=== PATIENT | female | born 1995 | race Caucasian/White ===

== ENCOUNTER 2020-03-11 03:12 | Emergency (ER) | payer OTHER ==
--- OUTSIDE RECORDS SUMMARY | 2020-03-11 03:33 | XMS ---
:1995 [facility] Providers Name Role Phone [id number] Unavailable Unavailable Re-disclosure Warning The records that you are about to access may contain information from federally- assisted alcohol or drug abuse programs. If such information is present, then the following federally mandated warning applies: This information has been disclosed to you from records protected by federal confidentiality rules (42 CFR part 2). The federal rules prohibit you from making any further disclosure of this information unless further disclosure is expressly permitted by the written consent of the person to whom it pertains or as otherwise permitted by 42 CFR part 2. A general authorization for the release of medical or other information is NOT sufficient for this purpose. The Federal rules restrict any use of the information to criminally investigate or prosecute any alcohol or drug abuse patient.The records that you are about to access may contain highly sensitive health information, the redisclosure of which is protected by Article 27-F of the [facility] Public Health law. If you continue you may haveaccess to information: Regarding HIV / AIDS; Provided by facilities licensed or operated by the [facility] Office of Mental Health; or Provided by the [facility] Office for People With Developmental Disabilities. If such information is present, then the following [facility] mandated warning applies: This information has been disclosed to you from confidential records which are protected by state law. State law prohibits you from making any further disclosure of this information without the specific written consent of the person to whom it pertains, or as otherwise permitted by law. Any unauthorized further disclosure in violation of state law may result in a fine or residential sentence or both. A general authorization for the release of medical or other information is NOT sufficient authorization for further disclosure. Encounters Encounter Providers Location Date Indications Data Source(s ) Outpatient Attender: PM[facility]9 07/17/2019 [facility] 12:17:41 PM Care [facility] n) EST Patient admitted. Insurance Providers Payer name Policy type Policy ID Covered Covered green party's Policy P allie / Coverage green party ID relationship to [employer] type wilson HIP MEDICAID [id number] SP [id number] HIP SHEILA [id number] PT [id number] 01 1 HIP MONTE [id number] PT [id number] MCAID 1 Results ID Date Data Source [id number] 12/17/2019 02:59:00 PM EDT [facility] Name Value Range Interpretation Code Description Data Yolis rce(s) Supporting Document(s ) COV2 [facility] This lab was ordered by MITZI FERRARI and reported by [facility] Michelle. Procedure
[2020-03-11 03:42] VITALS: TEMP 98.1; BMI 29.7
[2020-03-11] MEDS ORDERED: SODIUM CHLORIDE 0.9% 500 ML INFUS.BAG IV ONE (03:49)
[2020-03-11] MEDS ORDERED: ACETAMINOPHEN 1000 MG/100 ML VIAL (NON FORMULARY) IVPB ONE (03:49)
[2020-03-11] MEDS ORDERED: ONDANSETRON 4 MG/2 ML VIAL IVPUSH ONE (03:49)
--- NOTE | 2020-03-11 03:52 | PDOC ---
History of Present Illness - General Chief Complaint: Pain, Acute Stated Complaint: ABD PAIN Time Seen by Provider: 03/11/20 03:33 Past History - Medical History Allergies/Adverse Reactions: Allergies Allergy/AdvReac Type Severity Reaction Status Date / Time No Known Allergies Allergy Verified 03/11/20 03:41 - Reproductive History Is Patient Now?: No - Psycho-Social/Smoking History Smoking History: Never smoked Information on smoking cessation initiated: No - Substance Abuse Hx (Audit-C & DAST Scrn) How often the patient has a drink containing alcohol: Never Score: In Men: 4 or > Positive; In Women: 3 or > Positive: 0 Screen Result (Pos requires Nsg. Audit-10AR): Negative In the last yr the pt used illegal drug/Rx for NonMed reason: No Score: Yes response is considered Positive: 0 Screen Result (Positive result requires Nsg. DAST-10): Negative *Physical Exam - Vital Signs Last Vital Signs Temp Pulse Resp BP Pulse Ox 98.1 F 118 H 20 159/99 98 03/11/20 03:36 03/11/20 03:36 03/11/20 03:36 03/11/20 03:36 03/11/20 03:36 ED Treatment Course - LABORATORY CBC & Chemistry Diagram: 03/11/20 03:50 03/11/20 03:50 Medical Decision Making - Medical Decision Making 03/11/20 03:48 HPI: 25yo F hx PID (treated) presents from home c/o 4 days constant suprapubic/R pelvic dull nonradiating pain worse intermittently and worse after eating especially fatty foods, similar to prior PID but denies any chance of STI. Last tested 6mo ago and no unprotected sex since. Endorses nausea without vomiting. Endorses chills without fever. 2hrs ago 1 episode of white slightly clumpy vaginal discharge, denies irritation or rash or lesion or bleeding or other discharge. LMP ended Tuesday. 2 episodes of diarrhea Tuesday/Tuesday resolved. Endorses chronic slight BRBPR 2/2 hemorrhoids, no change recently. Took 1 pill of amoxicillin 3wks ago for sinus infection. Denies travel, sick contacts, abdominal surgeries, constipation, abdominal surgeries, urinary sx, flank pain. ROS: Constitutional: Positive for chills. Negative for ever, fatigue, diaphoresis. HENT: Negative for sore throat, rhinorrhea, congestion. Eyes: Negative for visual disturbance. Respiratory: Negative for shortness of breath, cough, and wheezing. Cardiovascular: Negative for chest pain, palpitations, and leg swelling. Gastrointestinal: Positive for abdominal pain, BRBPR, diarrhea, nausea. Negative for constipation, and vomiting. Genitourinary: Negative for dysuria, flank pain, and hematuria. Musculoskeletal: Negative for myalgias, back pain, and neck pain. Skin: Negative for rash. Neurological: Negative for light-headedness, dizziness, vertigo, syncope, weakness, numbness and headaches. Psychiatric/Behavioral: Negative for behavioral problems and confusion. PE: Gen: Alert, NAD, comfortable-appearing. HEENT: PERRL, EOMI, MMM, NCAT. No conjunctival pallor. Sclera are non-icteric. Oropharynx is clear. CV: Tachycardic rate and regular rhythm. No murmurs, rubs, or gallops. PULM: No resp distress. CTAB, no wheezes, rales, or rhonchi. ABD: soft, moderate RUQ TTP, slight suprapubic/R pelvic ttp, ND, no rebound tenderness or guarding, no CVA tenderness. PELVIC: External genitalia unremarkable. No blood seen with speculum exam; scant white non-odorous non-clumpy physiologic-appearing discharge. Cervix visualized and is unremarkable (closed in appearance without any protruding material). Bimanual exam with right adnexal TTP, without cervical motion tenderness, left adnexal tenderness, or any masses appreciated. BACK: No TTP of c/t/l-spine. No step-offs or deformities. MSK: No bony deformities. 2+ pulses in all extremities. NEURO: AAOx3. PERRL. No gross CN deficits. Strength and sensation grossly intact throughout. CN 2-12 intact. 5/5 strength in all extremities. Sensation to light touch intact in all extremities. No pronator drift. No dysmetria. No dysdiadochokinesia. No abnormal nystagmus. No skew deviation. Normal gait. EXTREMITIES: No cyanosis. No clubbing. No edema. No calf tenderness. PSYCH: Normal mood and thought pattern. SKIN: Warm and dry. Normal capillary refill. No rashes. No jaundice. MDM: 25yo F hx PID (treated) presents from home c/o 4 days suprapubic/R pelvic pain with associated nausea and chills. Tachycardic, otherwise hemodynamically stable, afebrile, pelvic exam notable for R CVA tenderness, abdomen exam notable for RUQ and R pelvic TTP. Ddx: cholelithiasis/cystitis, pancreatitis, GERD, appendicitis, colitis, gastroenteritis, pelvic pathology (cyst, cyst rupture, torsion, abscess), UTI, STD, PID -Labs -POCUS GB: contracted, ?polyp, no gallstones visualized, +Garcia's sign -RUQ US -Transvaginal US -CTAP w/IV contrast -IVF -Ofirmev -Zofran -Dispo: pending w/u 03/11/20 05:33 Labs reviewed. WBC 12.4, preg neg, ua neg for UTI 03/11/20 06:26 CTAP reviewed: Possible splenic cysts can be confirmed with ultrasound as clinically indicated. Small amount of pelvic free fluid is likely physiologic. No definite evidence of acute pathology. Pt sleeping comfortably. [] US transvaginal and RUQ Signed out to day team. Discharge - Discharge Information Problems reviewed: Yes Clinical Impression/Diagnosis: Abdominal pain Condition: Fair - Follow up/Referral Referrals: Sunny Galvez [Primary Care Provider] - - Patient Discharge Instructions - Post Discharge Activity
--- NOTE | 2020-03-11 03:55 | PDOC ---
Attending Attestation - Resident Resident Name: Sommer Cowart - ED Attending Attestation I have performed the following: I have examined & evaluated the patient, The case was reviewed & discussed with the resident, I agree w/resident's findings & plan, Exceptions are as noted - HPI HPI: 25 yo F history of PID (treated years ago) presents with 3-4 days of suprapubic and RLQ pain, progressively worsening. Worse with fatty foods. +Small amount of vaginal discharge, but nothing out of the ordinary. Denies dysuria, hematuria, back pain. Temp was 99.4 at home. - Physicial Exam PE: GENERAL: Awake, alert, and fully oriented, in no acute distress. Well-appearing. HEAD: No signs of trauma EYES: PERRLA, EOMI, sclera anicteric, conjunctiva clear ENT: Auricles normal inspection, hearing grossly normal, nares patent, oropharynx clear without exudates. Moist mucosa NECK: Normal ROM, supple, no lymphadenopathy, JVD, or masses LUNGS: Breath sounds equal, clear to auscultation bilaterally. No wheezes, and no crackles HEART: Regular rate and rhythm, normal S1 and S2, no murmurs, rubs or gallops ABDOMEN: Soft, +moderate RLQ tenderness with guarding, +mild RUQ tenderness, normoactive bowel sounds. +Guarding, no rebound. No masses EXTREMITIES: Normal range of motion, no edema. No clubbing or cyanosis. No cords, erythema, or tenderness NEUROLOGICAL: Cranial nerves II through XII grossly intact. Normal speech, normal gait. Motor and sensation intact SKIN: Warm, dry, normal turgor, no rashes or lesions noted. - Medical Decision Making 03/11/20 05:04 Based on GI symptoms, change in appetite, and RLQ tenderness, will check CT a/p to r/o appendicitis. If negative, will obtain pelvic US. Discharge - Discharge Information Problems reviewed: Yes Clinical Impression/Diagnosis: Abdominal pain Qualifiers: Abdominal location: lower abdomen, unspecified Qualified Code(s): R10.30 - Lower abdominal pain, unspecified Condition: Stable - Follow up/Referral Referrals: Sunny Galvez [Primary Care Provider] - - Patient Discharge Instructions Additional Instructions: You were seen in the emergency department for abdominal pain. You received nausea and pain medication. Your labs and imaging showed no signs of immediate concern. Please follow up with your primary care physician and or Loom Cleaner regarding your visit to the emergency department. If you experience profound nausea, vomiting, fever, chills, shortness of breath please return to the emergency department or call 911. - Post Discharge Activity
[2020-03-11] MEDS ORDERED: ACETAMINOPHEN INJECTION 100 ML IVPB ONE (04:06)
[2020-03-11 04:25] LABS: BASO % 0.6 % (0-2.0); EOS % 2.3 % (0-4.5); HEMATOCRIT 38.8 % (32.4-45.2); LYMPH % 29.2 % (8-40); MCH 28.8 pg (25.7-33.7); MCHC 33.6 g/dl (32.0-36.0); MEAN CELL VOLUME 85.9 fl (80-96); MEAN PLT VOLUME 8.6 fl (7.5-11.1); NEUT % 59.9 % (42.8-82.8); PLATELET COUNT 322 K/MM3 (134-434); RBC 4.51 M/mm3 (3.60-5.2); RDW 13.8 % (11.6-15.6); WHITE BLOOD COUNT 12.4 K/mm3 (4.0-10.0)
[2020-03-11 04:47] LABS: ALBUMIN 4.1 g/dl (3.4-5.0); BILIRUBIN,TOTAL 0.2 mg/dL (0.2-1); BLOOD UREA NITROGEN 13.8 mg/dL (7-18); CALCIUM 8.5 mg/dL (8.5-10.1); CREATININE 0.8 mg/dL (0.55-1.3); POTASSIUM 4.1 mmol/L (3.5-5.1); TOT PROT 7.2 g/dl (6.4-8.2)
[2020-03-11 04:52] LABS: PH,URINE 6.5 (5.0-8.0); URINE APPEARANCE CLEAR; URINE BILIRUBIN NEGATIVE (NEGATIVE); URINE COLOR YELLOW; URINE GLUCOSE (UA) NEGATIVE (NEGATIVE); URINE KETONE NEGATIVE (NEGATIVE); URINE LEUK ESTERASE NEGATIVE (NEGATIVE); URINE NITRITE NEGATIVE (NEGATIVE); URINE PROTEIN NEGATIVE (NEGATIVE); URINE UROBILINOGEN 0.2 mg/dL (0.2-1.0)
[2020-03-11 04:54] LABS: HCG,QUALITATIVE URINE Negative
[2020-03-11 04:57] VITALS: BP 112/74; PULSE 78
--- NOTE | 2020-03-11 07:29 | PDOC ---
*Physical Exam - Vital Signs Last Vital Signs Temp Pulse Resp BP Pulse Ox 98.1 F 78 18 112/74 100 03/11/20 03:36 03/11/20 04:56 03/11/20 04:56 03/11/20 04:56 03/11/20 04:56 - Physical Exam General Appearance: Yes: Nourished, Appropriately Dressed. No: Apparent Distress Respiratory/Chest: positive: Lungs Clear, Normal Breath Sounds. negative: Chest Tender, Respiratory Distress, Accessory Muscle Use, Crackles, Rales, Stridor, W heezing Cardiovascular: positive: Regular Rhythm, Regular Rate. negative: Edema, JVD, Murmur Gastrointestinal/Abdominal: positive: Normal Bowel Sounds, Tender (RLQ), Flat, Soft. negative: Distended, Guarding, Rebound, Tenderness Musculoskeletal: positive: Normal Inspection. negative: CVA Tenderness Extremity: positive: Normal Inspection. negative: Tender, Swelling, Calf Tenderness Integumentary: positive: Normal Color, Dry, Warm. negative: Rash, Swelling Neurologic: positive: Fully Oriented, Alert, Normal Mood/Affect, Normal Response ED Treatment Course - LABORATORY CBC & Chemistry Diagram: 03/11/20 03:50 03/11/20 03:50 - ADDITIONAL ORDERS Additional order review: Laboratory Results 03/11/20 03/11/20 03:50 03:50 Sodium 140 Potassium 4.1 Chloride 107 Carbon Dioxide 28 Anion Gap 4 L BUN 13.8 Creatinine 0.8 Est GFR (CKD-EPI)AfAm 118.76 Est GFR (CKD-EPI)NonAf 102.47 Random Glucose 93 Calcium 8.5 Total Bilirubin 0.2 AST 9 L ALT 18 Alkaline Phosphatase 77 Total Protein 7.2 Albumin 4.1 Lipase 157 Urine Color Yellow Urine Appearance Clear Urine pH 6.5 Ur Specific [place] 1.011 Urine Protein Negative Urine Glucose (UA) Negative Urine Ketones Negative Urine Blood Negative Urine Nitrite Negative Urine Bilirubin Negative Urine Urobilinogen 0.2 Ur Leukocyte Esterase Negative Urine HCG, Qual Negative 03/11/20 03:50 RBC 4.51 MCV 85.9 MCHC 33.6 RDW 13.8 MPV 8.6 Neutrophils % 59.9 Lymphocytes % 29.2 Monocytes % 8.0 Eosinophils % 2.3 Basophils % 0.6 - Medications Given in the ED: ED Medications Discontinued Medications Generic Name Dose Route Start Last Admin Trade Name Freq PRN Reason Stop Dose Admin Acetaminophen 1,000 mg 03/11/20 03:49 03/11/20 04:18 Ofirmev Injection - IVPB 03/11/20 03:50 1,000 mg ONCE ONE Administration Ondansetron HCl 4 mg 03/11/20 03:49 03/11/20 04:10 Zofran Injection IVPUSH 03/11/20 03:50 4 mg ONCE ONE Administration Sodium Chloride 1,000 ml 03/11/20 03:49 03/11/20 04:30 Normal Saline - IV 03/11/20 03:50 1,000 ml ONCE ONE Administration Medical Decision Making - Medical Decision Making 03/11/20 07:24 25 y.o. F PMHx PID (treated) presenting due to 4 days constant suprapubic/R pelvic dull nonradiating pain. Patient states the pain is worse when eating and positional changes. Patient states the pain has gotten better since being in the ED but is shaping machine tender in the RLQ. DDx: Cholelithiasis, Pancreatitis, Appendicitis, Colitis, pelvic pathology (cyst vs. torsion vs. abscess), UTI Labs: WBC 12.4, Na 140, K 4.1, lIPASE 157 UA: WNL CT: No acute pathology us: Normal abdominal US US Pelvic: No evidence of ovarian torsion or acute pathology Given 4mg zofran, 1,000mg Tylenol, and 1L NS in the ED Dispo: D/C home 03/11/20 10:18 Discharge - Discharge Information Problems reviewed: Yes Clinical Impression/Diagnosis: Abdominal pain Qualifiers: Abdominal location: lower abdomen, unspecified Qualified Code(s): R10.30 - Lower abdominal pain, unspecified Condition: Fair - Admission No - Follow up/Referral Referrals: Sunny Galvez [Primary Care Provider] - - Patient Discharge Instructions Additional Instructions: You were seen in the emergency department for abdominal pain. You received nausea and pain medication. Your labs and imaging showed no signs of immediate concern. Please follow up with your primary care physician and or Pilot Instructor regarding your visit to the emergency department. If you experience profound nausea, vomiting, fever, chills, shortness of breath please return to the emergency department or call 911. - Post Discharge Activity
== END 2020-03-11 10:41 ==
LOC: JER 03:12
PROC: 3E0333Z Introduction of Anti-inflammatory into Peripheral Vein, Percutaneous Approach (ICD-10-PCS; principal; 2020-03-11)
PROC: 3E033GC Introduction of Other Therapeutic Substance into Peripheral Vein, Percutaneous Approach (ICD-10-PCS; 2020-03-11)
DX: R10.30 Lower abdominal pain, unspecified (principal)
CPT/HCPCS: 36415; 74177-TC; 76705-TC; 76830-TC; 80053; 81003; 83690; 84703; 85025; 87086; 87491; 87591; 87661; 99285-25; J0131